=== PATIENT | female | born 1995 | race Caucasian/White ===

== ENCOUNTER 2023-12-18 02:35 | Emergency (ER) | payer OTHER ==
[2023-12-18 02:44] VITALS: BP 112/76; PULSE 84; RESP 18; TEMP 97.7; BMI 31.1
[2023-12-18] MEDS ORDERED: ACETAMINOPHEN INJECTION 100 ML IVPB ONE (03:33)
[2023-12-18] MEDS ORDERED: METOCLOPRAMIDE HCL INJECTION 10 MG/2 ML VIAL ONE (03:33)
[2023-12-18] MEDS: LACTATED RINGERS SOLUTION 1000 ML INFUS.BAG IV ONE (04:03)
[2023-12-18] MEDS: ACETAMINOPHEN 1000 MG/100 ML BAG IVPB ONE (04:03)
[2023-12-18] MEDS: METOCLOPRAMIDE HCL INJECTION 10 MG/2 ML VIAL IVPB ONE (04:04)
[2023-12-18 04:13] LABS: BASO % 0.4 % (0-2.0); EOS % 0.9 % (0-4.5); HEMATOCRIT 38.2 % (32.4-45.2); HEMOGLOBIN 13.3 GM/dL (10.7-15.3); LYMPH % 22.9 % (8-40); MCH 30.5 pg (25.7-33.7); MCHC 34.9 g/dl (32.0-36.0); MEAN CELL VOLUME 87.6 fl (80-96); MEAN PLT VOLUME 7.5 fl (7.5-11.1); MONO % 6.8 % (3.8-10.2); PLATELET COUNT 297 10^3/uL (134-434); RBC 4.36 M/mm3 (3.60-5.2); RDW 13.9 % (11.6-15.6); WHITE BLOOD COUNT 10.4 K/mm3 (4.0-10.0)
[2023-12-18 04:25] LABS: INR 0.96 (0.83-1.09); PROTHROMBIN TIME (PATIENT) 10.9 SEC (9.7-13.0)
[2023-12-18 05:03] LABS: POTASSIUM 5.2 mmol/L (3.5-5.1)
[2023-12-18 05:06] LABS: ALBUMIN 3.9 g/dl (3.4-5.0); BLOOD UREA NITROGEN 10.5 mg/dL (7-18)
[2023-12-18 05:09] LABS: CREATININE 0.7 mg/dL (0.55-1.3)
[2023-12-18 05:10] LABS: BILIRUBIN,TOTAL 0.4 mg/dL (0.2-1)
[2023-12-18 05:11] LABS: TOT PROT 8.1 g/dl (6.4-8.2)
== END 2023-12-18 05:46 | disposition home or self-care (01) ==
LOC: JER 02:35
DX: R51.9 Headache, unspecified (principal); R11.0 Nausea
CPT/HCPCS: 36415; 70450-TC; 80053; 84703; 85025; 85610; 99284-25